=== PATIENT | female | born 1985 | race Caucasian/White ===

== ENCOUNTER 2019-08-01 07:09 | Observation (INO) | payer BC, OTHER ==
[~2019-08-01] VITALS: Ht 162.6 cm; Wt 84.1 kg
[2019-08-01] MEDS ORDERED: KETOROLAC 30 MG/1 ML IVPush ONE (07:30)
--- NOTE | 2019-08-01 07:36 | NUR ---
PT IN HOSPITAL GOWN FROM SENDING FACILITY. PT PLACED ON CARDIAC AND VITALS MONITORS. FAMILY AT BEDSIDE. PT ABLE TO AMBULATE STEADILY TO BATHROOM. WILL CONTINUE TO MONITOR.
[2019-08-01] MEDS ORDERED: KETOROLAC 30 MG/1 ML ONE (07:49)
[2019-08-01] MEDS ORDERED: MULT-658 PO (07:56)
[2019-08-01 08:19] LABS: TROPONIN I < 0.015 ng/mL (0.000-0.045)
--- NOTE | 2019-08-01 08:21 | NUR ---
PT RESTING IN BED. NO REPORT OF INCREASED PAIN AT THIS TIME. PARENTS REMAIN AT BEDSIDE. STILL AWAITING A LAB TO RESULT. PT RESTING CALMLY.
--- NOTE | 2019-08-01 09:13 | NUR ---
PT AWARE OF ADMIT. RESTING WITH FAMILY AT BEDSIDE. NO DISTRESS
[2019-08-01] MEDS ORDERED: hydrALAzine 20 MG/ML, 1ML IVPush PRN (10:00)
[2019-08-01] MEDS ORDERED: NITROGLYCERIN 0.4 MG BOTTLE (25 TABS) SL PRN (10:00)
[2019-08-01] MEDS ORDERED: PROMETHAZINE 25 MG/ML, 1ML IM PRN (10:00)
[2019-08-01] MEDS ORDERED: morphine SULFATE 10 MG/ML, 1ML IVPush PRN (10:00)
[2019-08-01] MEDS ORDERED: ONDANSETRON 2MG/ML, 2ML IVPush PRN (10:00)
[2019-08-01] MEDS ORDERED: LABETALOL 5MG/ML, 20ML IVPush PRN (10:00)
[2019-08-01 10:05] LABS: BASOPHILS # (AUTO) 0.04 x10^3/uL (0-0.1); BASOPHILS % (AUTO) 0 % (0-1); EOSINOPHILS # (AUTO) 0.02 x10^3/uL (0-0.4); EOSINOPHILS % (AUTO) 0 % (1-7); LYMPHOCYTES # (AUTO) 1.54 x10^3/uL (1-3.4); LYMPHOCYTES % (AUTO) 12 % (22-44); MD NO; MEAN CORPUSCULAR HEMOGLOBIN 31.6 pg (27.0-34.8); MEAN CORPUSCULAR HGB CONC 33.4 g/dL (32.4-35.8); MEAN CORPUSCULAR VOLUME 94.7 fL (80-100); MEAN PLATELET VOLUME 10.1 fL (7.4-10.4); MONOCYTES # (AUTO) 0.48 x10^3/uL (0.2-0.8); MONOCYTES % (AUTO) 4 % (2-9); NEUTROPHILS # (AUTO) 11.36 x10^3/uL (1.8-6.8); NEUTROPHILS % (AUTO) 85 % (42-75); PLATELET COUNT 214 x10^3/uL (130-400); RED BLOOD COUNT 4.13 x10^6/uL (3.82-5.3); RED CELL DISTRIBUTION WIDTH 13.2 % (9.6-15.2)
[2019-08-01 10:15] LABS: ALANINE AMINOTRANSFERASE 31 U/L (12-78); ALBUMIN 3.5 g/dL (3.4-5.0); ANION GAP 9 mmol/L (5-15); CALCIUM 8.4 mg/dL (8.5-10.1); CHLORIDE 112 mmol/L (98-107); CREATININE 0.93 mg/dL (0.55-1.02)
[2019-08-01 10:19] LABS: ALKALINE PHOSPHATASE 49 U/L (45-117); BILIRUBIN,TOTAL 0.6 mg/dL (0.2-1.0); TOTAL PROTEIN 6.9 g/dL (6.4-8.2); TROPONIN I < 0.015 ng/mL (0.000-0.045)
--- NOTE | 2019-08-01 10:30 | NUR ---
PT AMBULATED TO BR. pT DENIES PAIN. NO COMPLAINT
[2019-08-01 11:32] VITALS: BP 114/72
[2019-08-01] MEDS: HEPARIN 5,000 UNITS/ML, 1ML SQ SCH ×2 (11:47→21:03)
[2019-08-01] MEDS: SODIUM CHLORIDE 0.9% 1,000 ML IV SCH ×2 (11:47→23:33)
[2019-08-01 13:14] VITALS: BP 115/72
[2019-08-01] MEDS ORDERED: OMNIPAQUE 350 MG/ML, 100ML BOTTLE ONE (14:19)
[2019-08-01 15:45] LABS: HCG UR SG > 1.045 (1.003-1.030)
[2019-08-01 16:24] LABS: TROPONIN I < 0.015 ng/mL (0.000-0.045)
[2019-08-01] MEDS ORDERED: ATORVASTATIN 80 MG TABLET PO SCH (21:00)
[2019-08-01 21:15] VITALS: BP 114/78
[2019-08-01 22:08] LABS: TROPONIN I < 0.015 ng/mL (0.000-0.045)
[2019-08-02 03:08] VITALS: BP 115/70
[2019-08-02 05:45] LABS: CHLORIDE 113 mmol/L (98-107)
[2019-08-02 05:46] LABS: BASOPHILS # (AUTO) 0.02 x10^3/uL (0-0.1); BASOPHILS % (AUTO) 0 % (0-1); EOSINOPHILS # (AUTO) 0.12 x10^3/uL (0-0.4); EOSINOPHILS % (AUTO) 2 % (1-7); LYMPHOCYTES # (AUTO) 1.98 x10^3/uL (1-3.4); LYMPHOCYTES % (AUTO) 26 % (22-44); MD NO; MEAN CORPUSCULAR HEMOGLOBIN 31.5 pg (27.0-34.8); MEAN CORPUSCULAR HGB CONC 33.4 g/dL (32.4-35.8); MEAN CORPUSCULAR VOLUME 94.1 fL (80-100); MEAN PLATELET VOLUME 9.3 fL (7.4-10.4); MONOCYTES # (AUTO) 0.47 x10^3/uL (0.2-0.8); MONOCYTES % (AUTO) 6 % (2-9); NEUTROPHILS # (AUTO) 5.17 x10^3/uL (1.8-6.8); NEUTROPHILS % (AUTO) 67 % (42-75); PLATELET COUNT 176 x10^3/uL (130-400); RED BLOOD COUNT 3.72 x10^6/uL (3.82-5.3); RED CELL DISTRIBUTION WIDTH 13.2 % (9.6-15.2)
[2019-08-02] MEDS: HEPARIN 5,000 UNITS/ML, 1ML SQ SCH ×2 (05:51→14:00)
[2019-08-02 05:55] LABS: ANION GAP 7 mmol/L (5-15); CALCIUM 7.7 mg/dL (8.5-10.1); CREATININE 0.74 mg/dL (0.55-1.02)
[2019-08-02 05:56] LABS: ALANINE AMINOTRANSFERASE 24 U/L (12-78); ALBUMIN 2.9 g/dL (3.4-5.0); ALKALINE PHOSPHATASE 43 U/L (45-117); BILIRUBIN,TOTAL 0.8 mg/dL (0.2-1.0); CHOL/HDL RATIO 2.8; CHOLESTEROL, TOTAL 165 mg/dL (140-239); HDL CHOL % 36 % (28-40); HDL CHOLESTEROL (DIRECT) 59 mg/dL (40-60); LDL CHOLESTEROL,CALCULATED 93 mg/dL (54-169); LDL/HDL RATIO 1.6 (0.5-3.0); TOTAL PROTEIN 5.9 g/dL (6.4-8.2); TRIGLYCERIDES 65 mg/dL (50-200); VLDL CHOLESTEROL 13 mg/dL (0-25)
[2019-08-02] MEDS ORDERED: ASPIRIN 325 MG TABLET EC PO SCH (06:00)
[2019-08-02 06:56] VITALS: BP 102/69
[2019-08-02] MEDS ORDERED: IBUPROFEN 200 MG TABLET ONE (08:46)
[2019-08-02] MEDS ORDERED: IBUPROFEN 200 MG TABLET PO PRN (09:00)
[2019-08-02] MEDS: SODIUM CHLORIDE 0.9% 1,000 ML IV SCH (12:39)
[2019-08-02 13:26] VITALS: BP 113/75
[2019-08-02] MEDS ORDERED: ACET325T21 PO (14:59)
== END 2019-08-02 15:55 | disposition home or self-care (01) ==
LOC: ED 08:35 → 5SO 10:09 → INTOOBSV 10:09 → DCLOUNGE 08-02 15:42
PROVIDERS: ADMIT Internal Medicine; ATTEND Internal Medicine
DX: R07.89 Other chest pain (principal); D72.829 Elevated white blood cell count, unspecified; E87.6 Hypokalemia; R94.31 Abnormal electrocardiogram [ECG] [EKG]; Z79.899 Other long term (current) drug therapy
CPT/HCPCS: 36415; 71275; 78452; 80053; 80061; 81025; 84443; 84484; 85025; 85651; 86140; 93005; 93017; 93306; 96372; 96374; 99284; A9502; G0378; J1644; J1885; J7030; Q9967